=== PATIENT | male | born 1995 | race African-American/Black ===

== ENCOUNTER 2018-04-29 20:16 | Emergency (ER) | payer SELFPAY, OTHER ==
[2018-04-29] MEDS: NS 1,000 ML IV (20:55)
[2018-04-29] MEDS: fentaNYL 100 MCG/2 ML INJECTION (J3010) IV (21:30)
[2018-04-29] MEDS: PROPOFOL 200 MG/20 ML VIAL IV ×3 (21:35→21:37)
[2018-04-29] MEDS ORDERED: methylPREDNISolone INJ 125 MG/2 ML VIAL (J2930) IV (22:00)
== END 2018-04-29 23:07 | disposition home or self-care (01) ==
LOC: M ED 20:16
DX: S43.004A Unspecified dislocation of right shoulder joint, initial encounter (principal); X50.9XXA Other and unspecified overexertion or strenuous movements or postures, initial encounter; Y92.89 Other specified places as the place of occurrence of the external cause; Y93.B9 Activity, other involving muscle strengthening exercises
CPT/HCPCS: J3010